=== PATIENT | male | born 1985 | race African-American/Black ===

== ENCOUNTER 2021-01-29 13:57 | Emergency (ER) | payer OTHER ==
[2021-01-29] MEDS ORDERED: FLUORESCEIN SODIUM 1 MG/WRAP ONE ×2 (15:52→16:06)
[2021-01-29] MEDS ORDERED: TETRACAINE HCL 0.5% 4ML OPTH ONE ×2 (15:52→16:06)
--- NOTE | 2021-01-29 16:03 | ER ---
Nurse's Notes [facility] Name: Dia Paez Age: 35 yrs Sex: Male : 1985 Arrival Date: 01/29/2021 Time: 14:01 Bed 12 Private MD: Diagnosis: Other acute conjunctivitis Presentation: 01/29 14:13 Chief complaint: Patient states: "Around 0900 my Right eye has been feeling hurting off vg1 and on. It more of an irritation feeling. " Redness is noted. Coronavirus screen: Client denies travel out of the [place] in the last 14 days. Ebola Screen: Patient negative for fever greater than or equal to 101.5 degrees Fahrenheit, and additional compatible Ebola Virus Disease symptoms. Initial Sepsis Screen: Does the patient meet any 2 criteria? No. Patient's initial sepsis screen is negative. Does the patient have a suspected source of infection? No. Patient's initial sepsis screen is negative. Risk Assessment: Do you want to hurt yourself or someone else? Patient reports no desire to harm self or others. Onset of symptoms was January 29, 2021. 14:13 Method Of Arrival: Ambulatory vg1 14:13 Acuity: TAB 4 vg1 Triage Assessment: 14:15 General: Appears in no apparent distress. comfortable, Behavior is calm, cooperative. vg1 Pain: Complains of pain in right eye. Historical: - Allergies: 14:15 Eggs; vg1 - Home Meds: 14:15 losartan oral [Active]; vg1 - PMHx: 14:15 Hypertensive disorder; vg1 - Immunization history:: Adult Immunizations up to date. - Social history:: Smoking status: Patient denies any tobacco usage or history of. Screenin:08 Abuse screen: Denies threats or abuse. Denies injuries from another. Nutritional ss screening: No deficits noted. Tuberculosis screening: Never had TB. Fall Risk None identified. Assessment: 14:56 Reassessment: Pt called to exam room, received no answer. vg1 15:08 General: Appears in no apparent distress. comfortable, Behavior is calm, cooperative. vg1 Pain: Complains of pain in right eye Pain currently is 2 out of 10 on a pain scale. Pain began this morning around 0900. Neuro: Level of Consciousness is awake, alert, obeys commands, Oriented to person, place, time, situation. Cardiovascular: Patient's skin is warm and dry. Respiratory: Airway is patent Respiratory effort is even, unlabored. GI: No signs and/or symptoms were reported involving the gastrointestinal system. : No signs and/or symptoms were reported regarding the genitourinary system. EENT: Eyes are tearing on right eye Sclera/Cornea are reddened in right eye. Derm: Skin is intact, is healthy with good turgor. Musculoskeletal: Circulation, motion, and sensation intact. Vital Signs: 14:13 BP 133 / 70; Pulse 61; Resp 16; Temp 97.2; Pulse Ox 98% ; Weight 89.81 kg; Height 5 ft. vg1 9 in. (175.26 cm); Pain 2/10; 14:13 Body Mass Index 29.24 (89.81 kg, 175.26 cm) 1 ED Course: 14:01 Patient arrived in ED. 14:[address] [facility] 14:15 Arm band placed on Patient placed in waiting room, Patient notified of wait time. [facility] 15:08 Haley Dowling, RN is Primary Nurse. 15:08 Patient has correct armband on for positive identification. Bed in low position. Call ss light in reach. 15:16 [facility] [place] 15:16 Ernst Paredes MD is Attending Physician. [facility] [place] 16:02 Jesus Zee MD is Referral Physician. [facility] [place] 16:15 No provider procedures requiring assistance completed. Patient did not have IV access ss during this emergency room visit. Administered Medications: 16:00 Drug: Tetracaine Drops 0.5 % 1 drops Route: Ophthalmic; Site: right eye; 16:08 Follow up: Response: No adverse reaction Outcome: 16:02 Discharge ordered by . [facility] [place] 16:15 Discharged to home ambulatory. 16:15 Condition: good 16:15 Discharge instructions given to patient, Instructed on discharge instructions, follow up and referral plans. Demonstrated understanding of instructions, follow-up care. 16:15 Patient left the ED. Signatures: Heri Johnston PA PA jmm Smirch, Shelby, RN RN Suzi Jole RN RN [facility] Jyoti Man
--- NOTE | 2021-01-29 16:03 | EDPHYS ---
Physician Documentation [facility] Name: Dia Paez Age: 35 yrs Sex: Male : 1985 Arrival Date: 01/29/2021 Time: 14:01 Bed 12 Private MD: ED Physician Ernst Paredes HPI: 01/29 15:28 This 35 yrs old Black Male presents to ER via Ambulatory with complaints of Foreign jmm Body In Eye. 15:28 The patient is experiencing pain, redness. Onset: The symptoms/episode began/occurred jmm this morning. Duration: the symptoms are continuous. Aggravated by nothing. Alleviated by nothing. Associated signs and symptoms: Pertinent negatives: fever. This is a 35 year old male with a history of htn that presents to the ED with complaints of right eye pain. Patient states he awoke this morning with a foreign body sensation to the right eye. Patient states discomfort has increased since onset. Does not wear contact lenses. Historical: - Allergies: 14:15 Eggs; vg1 - Home Meds: 14:15 losartan oral [Active]; vg1 - PMHx: 14:15 Hypertensive disorder; vg1 - Immunization history:: Adult Immunizations up to date. - Social history:: Smoking status: Patient denies any tobacco usage or history of. ROS: 15:28 Constitutional: Negative for fever, chills, and weight loss. jmm 15:28 Cardiovascular: Negative for chest pain, palpitations, and edema, Respiratory: Negative for shortness of breath, cough, wheezing, and pleuritic chest pain, Neuro: Negative for headache, weakness, numbness, tingling, and seizure. 15:28 Eyes: Positive for pain. 15:28 All other systems are negative. Exam: 15:28 Constitutional: This is a well developed, well nourished patient who is awake, alert, jmm and in no acute distress. Head/Face: atraumatic. 15:28 Neck: Trachea midline, Supple Chest/axilla: Normal chest wall appearance and motion. Cardiovascular: Regular rate and rhythm. No edema appreciated Respiratory: Normal respirations, no respiratory distress appreciated Abdomen/GI: Non distended, soft Back: Normal ROM Skin: General appearance color normal MS/ Extremity: Moves all extremities, no obvious deformities appreciated, no edema noted to the lower extremities Neuro: Awake and alert, normal gait Psych: Behavior is normal, Mood is normal, Patient is cooperative and pleasant 15:28 Eyes: Extraocular movements: intact throughout, Conjunctiva: injected. Vital Signs: 14:13 BP 133 / 70; Pulse 61; Resp 16; Temp 97.2; Pulse Ox 98% ; Weight 89.81 kg; Height 5 ft. vg1 9 in. (175.26 cm); Pain 2/10; 14:13 Body Mass Index 29.24 (89.81 kg, 175.26 cm) vg1 MDM: 15:28 Patient medically screened. [facility] 16:00 Data reviewed: vital signs, nurses notes. Counseling: I had a detailed discussion with [facility] the patient and/or guardian regarding: the historical points, exam findings, and any diagnostic results supporting the discharge/admit diagnosis, the need for outpatient follow up, to return to the emergency department if symptoms worsen or persist or if there are any questions or concerns that arise at home. ED course: No dye uptake appreciated on examination. Patient advised to follow up with opthalmology for further evaluation. Patient is otherwise given strict return precautions. Patient understood and agrees with the plan of care. . 01/29 15:26 Order name: Eye Tray; Complete Time: 15:29 [facility] 01/29 15:26 Order name: Fluoresene Opth strip; Complete Time: 15:29 [facility] Administered Medications: 16:00 Drug: Tetracaine Drops 0.5 % 1 drops Route: Ophthalmic; Site: right eye; ss 16:08 Follow up: Response: No adverse reaction ss Disposition: 16:33 Co-signature as Attending Physician, Ernst Paredes MD I agree with the assessment and kdr plan of care. Disposition Summary: 01/29/21 16:02 Discharge Ordered Location: Home [facility] Condition: Stable [facility] Diagnosis - Other acute conjunctivitis [facility] Followup: [facility] - With: Jesus Zee MD - When: 2 - 3 days - Reason: Recheck today's complaints, Continuance of care, Re-evaluation by your physician Discharge Instructions: - Discharge Summary Sheet jmm - Allergic Conjunctivitis, Adult jmm - Chemical Conjunctivitis, Adult jmm - Bacterial Conjunctivitis, Adult jmm - Viral Conjunctivitis, Adult [facility] Forms: - Medication Reconciliation Form [facility] - Thank You Letter [facility] - Antibiotic Education jmm - Prescription Opioid Use jmm Signatures: Ernst Paredes MD MD kdr Mickail, Joel, PA PA jmm Haley Dowling, RN RN ss Suzi Joel RN RN vg1
[2021-01-29 16:33] VITALS: BP 133/70; TEMP 97.2; O2SAT 98
== END 2021-01-29 16:15 | disposition home or self-care (01) ==
LOC: ER 13:57
DX: H10.31 Unspecified acute conjunctivitis, right eye (principal); I10 Essential (primary) hypertension; Z91.012 Allergy to eggs
CPT/HCPCS: 99283